=== PATIENT | male | born 1965 | race African-American/Black ===

== ENCOUNTER 2018-06-20 22:43 | Emergency (ER) | payer MEDICAID ==
[~2018-06-20] VITALS: Ht 172.7 cm; Wt 83.9 kg
[2018-06-20 22:58] VITALS: BP 169/92
[2018-06-21] MEDS ORDERED: TETRACAINE HCL 0.5% OPTH(EYE) SOLN 4ML EACHEYE ONE (01:30)
[2018-06-21] MEDS ORDERED: FLUORESCEIN SOD 1 MG TEST STRIP EACHEYE ONE (01:30)
== END 2018-06-21 02:00 | disposition home or self-care (01) ==
LOC: ER 22:43
DX: H10.9 Unspecified conjunctivitis (principal)

== ENCOUNTER 2018-06-22 02:56 | Emergency (ER) | payer MEDICAID | END 2018-06-22 03:30 | disposition left against medical advice (07) | LOC: ER 02:56 | DX: R22.0 Localized swelling, mass and lump, head (principal); Z53.21 Procedure and treatment not carried out due to patient leaving prior to being seen by health care provider ==

== ENCOUNTER 2018-06-23 08:56 | Emergency (ER) | payer MEDICAID ==
[~2018-06-23] VITALS: Ht 172.7 cm; Wt 86.2 kg
[2018-06-23 09:11] VITALS: BP 164/109
[2018-06-23] MEDS ORDERED: cefTRIAXone SOD 1,000 MG VL IM ONE (11:00)
== END 2018-06-23 11:58 | disposition home or self-care (01) ==
LOC: ER 09:03
DX: H10.32 Unspecified acute conjunctivitis, left eye (principal)
CPT/HCPCS: 96372; 99283; J0696